=== PATIENT | male | born 1970 | race Caucasian/White ===

== ENCOUNTER 2019-09-02 17:30 | Emergency (ER) | payer BC ==
[2019-09-02 17:50] VITALS: BP 157/91
[2019-09-02] MEDS ORDERED: traMADol TAB* 50 MG PO ONE (18:17)
[2019-09-02] MEDS ORDERED: Silver Sulfadiazine 1%* 20 GM TOPICAL ONE (18:19)
--- NOTE | 2019-09-02 18:26 | UC ---
Lower Extremity/Ankle HPI - HPI Summary HPI Summary: open blisters with sloth on both feet after going outside and walking barefoot for "quite a while" no streaking, no fevers---also has ran out of gabapentin wellbutrin and BP Med - History of Current Complaint Chief Complaint: UCLowerExtremity Stated Complaint: POSSIBLE INFECTED WOUND BILATERAL FEET Time Seen by Provider: 09/02/19 17:56 Hx Obtained From: Patient Onset/Duration: Sudden Onset, Lasting Days, Still Present Pain Intensity: 7 Pain Scale Used: 0-10 Numeric Aggravating Factor(s): Standing, Ambulation Alleviating Factor(s): Nothing Able to Bear Weight: Yes - but very painful - Allergies/Home Medications Allergies/Adverse Reactions: Allergies Allergy/AdvReac Type Severity Reaction Status Date / Time No Known Allergies Allergy Verified 09/02/19 17:45 Home Medications: Home Medications Cholecalciferol CAP/TAB(NF) [Vitamin D3 CAP/TAB (NF)] 1 cap PO BID 09/02/19 [ History Confirmed 09/02/19] Ubidecarenone [Co Q-10] 100 mg PO DAILY 09/02/19 [History Confirmed 09/02/19] PMH/Surg Hx/FS Hx/Imm Hx Previously Healthy: Yes Cardiovascular History: Hypertension Psychological History: Depression - Surgical History Surgical History: Yes Surgery Procedure, Year, and Place: hand surgery; vasectomy - Family History Known Family History: Positive: None - Social History Occupation: Employed Full-time Lives: With Family Alcohol Use: Occasionally Substance Use Type: None Smoking Status (MU): Heavy Every Day Tobacco Smoker Review of Systems All Other Systems Reviewed And Are Negative: Yes Constitutional: Positive: Negative Skin: Positive: Other - open area on both feet Eyes: Positive: Negative ENT: Positive: Negative Respiratory: Positive: Negative Cardiovascular: Positive: Negative Gastrointestinal: Positive: Negative Genitourinary: Positive: Negative Motor: Positive: Negative Neurovascular: Positive: Negative Musculoskeletal: Positive: Negative Neurological: Positive: Negative Psychological: Positive: Negative Is Patient Immunocompromised?: No Physical Exam Triage Information Reviewed: Yes Appearance: Well-Appearing, No Pain Distress, Well-Nourished Vital Signs: Initial Vital Signs Temp 99.8 F 09/02/19 17:47 Pulse 111 09/02/19 17:47 Resp 20 09/02/19 17:47 BP 157/91 09/02/19 17:47 Pulse Ox 98 09/02/19 17:47 Vital Signs Reviewed: Yes Eye Exam: Normal Eyes: Positive: Conjunctiva Clear ENT Exam: Normal ENT: Positive: Normal ENT inspection, Hearing grossly normal. Negative: Trismus , Muffled voice, Hoarse voice Dental Exam: Normal Neck exam: Normal Neck: Positive: Supple, Nontender Respiratory Exam: Normal Respiratory: Positive: No respiratory distress, No accessory muscle use Cardiovascular Exam: Normal Cardiovascular: Positive: RRR, Pulses Normal, Brisk Capillary Refill Musculoskeletal Exam: Normal Musculoskeletal: Positive: Strength Intact, ROM Intact, No Edema Neurological Exam: Normal Neurological: Positive: Alert, Muscle Tone Normal Psychological Exam: Normal Skin: Positive: Other - open blisters both feet no drainage, some skin sloughing -painful to touch Lower Extremity Course/Dx - Course Course Of Treatment: would cleaned with water and hibiclens, silvadene and bulky dressing,bilateral post op shoes---pain med and augment ordered, routine meds refilled untillhe sees pcp - Differential Dx/Diagnosis Provider Diagnosis: Hypertension, Depression, Friction blisters of sole of left foot, Friction blisters of sole of right foot Discharge ED - Sign-Out/Discharge Documenting (check all that apply): Patient Departure All imaging exams completed and their final reports reviewed: No Studies - Discharge Plan Condition: Stable Disposition: HOME Prescriptions: Amoxicillin/Clavulanate TAB* [Augmentin TAB 875*] 875 mg PO BID #19 tab Bupropion XL* [Wellbutrin XL *] 150 mg PO DAILY #30 tab Gabapentin CAP(*) [Neurontin 300 CAP(*)] 300 mg PO TID #90 cap Ibuprofen TAB* [Motrin TAB* 600 MG] 600 mg PO Q6H PRN #40 tab PRN Reason: pain Metoprolol Succinate XL TAB* [Toprol XL TAB*] 25 mg PO DAILY #30 tab.xl traMADol TAB* [Ultram*] 50 mg PO Q12H PRN #5 tab MDD 2 PRN Reason: pain Patient Education Materials: Acute Wound Care (ED), Hypertension (ED) Forms: *Work Release Referrals: VIRIDIANA Archer [Medical Doctor] - No Primary Care Phys,NOPCP [Primary Care Provider] - - Billing Disposition and Condition Condition: STABLE Disposition: Home
[2019-09-02] MEDS ORDERED: Ketorolac *IM* INJ* 60 MG/2 ML VIAL IM ONE (18:35)
[2019-09-02] MEDS ORDERED: Amoxicillin/Clavulanate TAB* 875 MG PO ONE (18:36)
== END 2019-09-02 19:35 | disposition home or self-care (01) ==
LOC: UCCORT 17:30
DX: S90.822A Blister (nonthermal), left foot, initial encounter (principal); S90.821A Blister (nonthermal), right foot, initial encounter; I10 Essential (primary) hypertension; F32.9 Major depressive disorder, single episode, unspecified; F17.210 Nicotine dependence, cigarettes, uncomplicated; X58.XXXA Exposure to other specified factors, initial encounter; Y93.01 Activity, walking, marching and hiking; Y92.9 Unspecified place or not applicable
CPT/HCPCS: 99204; A9270-GY; G0463; J1885

== ENCOUNTER 2019-09-16 10:56 | Emergency (ER) | payer BC ==
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
[2019-09-16 13:49] VITALS: BP 00/00
== END 2019-09-16 13:35 | disposition home or self-care (01) ==
LOC: ED 10:56
DX: F10.10 Alcohol abuse, uncomplicated (principal); I10 Essential (primary) hypertension; F17.200 Nicotine dependence, unspecified, uncomplicated
CPT/HCPCS: 99282